=== PATIENT | female | born 1975 | race Caucasian/White ===

== ENCOUNTER 2018-01-22 20:30 | Emergency (ER) | payer MEDICARE, OTHER ==
[~2018-01-22] VITALS: Ht 167.6 cm; Wt 77.1 kg
[~2018-01-22 20:30] MED LIST: ATORVASTATIN CA40 MG PO; CIPRO500 MG PO; FENOFIBRATE160 MG PO; FLAGYL500 MG PO; GEMFIBROZIL600 MG PO; LEVALBUTER0.31 MG/3 NEB; LEVOTHYROXINE50 MCG PO; LISINOPRIL-HCT1 EAC1 PO; LISINOPRIL-HCT1 EACH PO; NAPROXEN250 MG PO; NORCO 10-325 T1 EACH PO; NORCO 5-325 TA1 EACH PO; RISPERDAL0.5 MG; RISPERDAL4 MG PO; SERTRALINE HCL50 MG PO; SIMVASTATIN40 MG PO; SYMBICORT 16010.2 GM IH; ULTRAM50 MG PO
== END 2018-01-22 23:17 | disposition home or self-care (01) ==
LOC: ER 20:30
DX: M54.31 Sciatica, right side (principal); G89.29 Other chronic pain; F17.210 Nicotine dependence, cigarettes, uncomplicated
CPT/HCPCS: 99282

== ENCOUNTER 2020-07-15 11:18 | Emergency (ER) | payer MEDICARE, OTHER ==
[~2020-07-15] VITALS: Ht 167.6 cm; Wt 77.1 kg
[2020-07-15] MEDS ORDERED: FENTANYL CITRATE/PF 100MCG/2 ML INJ IV PRN (11:30)
[2020-07-15] MEDS ORDERED: ASPIRIN 81 MG CHEW TAB PO ONE (11:30)
[2020-07-15 11:57] LABS: BASOPHILS # (AUTO) 0.1 (0.0-0.1); BASOPHILS % 0.8 % (0.0-1.0); EOSINOPHILS # (AUTO) 0.1 (0.0-0.4); HEMATOCRIT 39.7 % (34.2-44.1); HEMOGLOBIN 13.2 g/dL (12.0-16.0); LYMPHOCYTES # (AUTO) 1.3 (1.0-3.2); LYMPHOCYTES % 22.4 % (18.0-39.1); MEAN CORPUSCULAR HEMOGLOBIN 29.5 pg (28-32); MEAN CORPUSCULAR HGB CONC 33.2 g/dL (31-35); MEAN CORPUSCULAR VOLUME 88.6 fL (81-99); MONOCYTES # (AUTO) 0.5 (0.2-0.8); MONOCYTES % 8.9 % (4.4-11.3); NEUTROPHILS # (AUTO) 3.9 (2.1-6.9); NEUTROPHILS % 65.7 % (38.7-80.0); PLATELET COUNT 285 x10e3/uL (140-360); RED BLOOD COUNT 4.48 x10e6/uL (3.6-5.1); RED CELL DISTRIBUTION WIDTH 11.9 % (11.7-14.4)
[2020-07-15 12:18] LABS: ALANINE AMINOTRANSFERASE 15 IU/L (0-55); ALBUMIN 4.6 g/dL (3.5-5.0); ALBUMIN/GLOBULIN RATIO 1.8 (0.8-2.0); ALKALINE PHOSPHATASE 68 IU/L (40-150); ANION GAP 14.9 mmol/L (8-16); BLOOD UREA NITROGEN 17 mg/dL (7-26); BUN/CREATININE RATIO 20 (6-25); CALCIUM 9.9 mg/dL (8.4-10.2); CARBON DIOXIDE 29 mmol/L (22-29); CHLORIDE 103 mmol/L (98-107); CREATININE, SERUM 0.85 mg/dL (0.57-1.11); EST GLOMERULAR FILTRATION RATE > 60 ML/MIN (60-); GLUCOSE 103 mg/dL (74-118); POTASSIUM 3.9 mmol/L (3.5-5.1); SODIUM 143 mmol/L (136-145)
[2020-07-15] MEDS ORDERED: SODIUM CHLORIDE 0.9% 50ML 50 ML ONE (16:31)
[2020-07-15] MEDS ORDERED: IOPAMIDOL 370 MG/ML 200 ML INFUS..BTL INJ ONE (16:31)
== END 2020-07-15 16:23 | disposition home or self-care (01) ==
LOC: ER 11:30
DX: R07.9 Chest pain, unspecified (principal); J44.9 Chronic obstructive pulmonary disease, unspecified; E78.5 Hyperlipidemia, unspecified; E03.9 Hypothyroidism, unspecified; G89.29 Other chronic pain
CPT/HCPCS: 36415; 71045; 71260; 80053; 83690; 84484; 84702; 85025; 85379; 93005; 99284; J3010; Q9967